=== PATIENT | female | born 1995 | race Caucasian/White ===

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

== ENCOUNTER 2017-07-06 21:11 | Emergency (ER) | payer OTHER | END 2017-07-07 00:10 | disposition left against medical advice (07) | LOC: M ED 21:11 | DX: Z53.29 Procedure and treatment not carried out because of patient's decision for other reasons (principal) ==

== ENCOUNTER 2017-09-27 10:20 | Emergency (ER) | payer OTHER ==
[2017-09-27 11:11] LABS: AMORPHOUS SEDIMENT RFX LARGE (NEGATIVE); KETONE, URINE AUTO RFX NEGATIVE (NEGATIVE); MUCUS, URINE RFX SMALL (NEGATIVE); NITRITE, URINE AUTO RFX NEGATIVE (NEGATIVE); RBC, URINE AUTO RFX 1 /HPF (0-3); SPECIFIC GRAVITY UR AUTO RFX 1.017 (1.002-1.035); SQUAM EPITHELIAL CELL UR AURFX 2 /HPF (0-6); WBC, URINE AUTO RFX 1 /HPF (0-3)
[2017-09-27 11:28] LABS: LEUKOCYTE ESTERASE UR AUTO RFX 1+ (NEGATIVE)
== END 2017-09-27 13:06 | disposition home or self-care (01) ==
LOC: M ED 10:20
DX: O23.591 Infection of other part of genital tract in pregnancy, first trimester (principal); B37.3 Candidiasis of vulva and vagina; O9A.211 Injury, poisoning and certain other consequences of external causes complicating pregnancy, first trimester; T36.95XA Adverse effect of unspecified systemic antibiotic, initial encounter; Z3A.00 Weeks of gestation of pregnancy not specified
CPT/HCPCS: 81001

== ENCOUNTER → 2017-11-07 | Outpatient (CLI) | payer OTHER ==
[2017-11-07 19:40] LABS: BASO % 0.4 % (0.0-1.0); EOS # 0.1 10^3/uL (0.0-0.50); EOS % 1.5 % (0.0-3.0); HEMATOCRIT 36.6 % (36.0-47.0); HEMOGLOBIN 12.9 g/dl (12.0-15.5); IMMATURE GRANULOCYTE % 0.3 % (0-3.0); LYMPH # 1.5 10^3/uL (1.5-6.5); LYMPH % 16.1 % (24.0-44.0); MEAN CORPUSCULAR HEMOGLOBIN 31.4 pg (27.0-33.0); MEAN CORPUSCULAR HGB CONC 35.2 g/dl (32.0-36.5); MEAN CORPUSCULAR VOLUME 89.1 fl (80.0-96.0); MONO # 0.8 10^3/uL (0.0-0.8); MONO % 8.2 % (0.0-5.0); NEUTROPHILS # 6.8 10^3/uL (1.8-7.7); NEUTROPHILS % 73.5 % (36.0-66.0); PLATELET COUNT, AUTOMATED 147 10^3/uL (150-450); RED BLOOD COUNT 4.11 10^6/uL (4.00-5.40); RED CELL DISTRIBUTION WIDTH 12.6 % (11.5-14.5); WHITE BLOOD COUNT 9.2 10^3/uL (4.0-10.0)
[2017-11-07 23:21] LABS: GC DNA AMPLIFICATION NEGATIVE (NEGATIVE)
[2017-11-08 06:25] LABS: CHLAMYDIA DNA AMPLIFICATION NEGATIVE (NEGATIVE)
[2017-11-09 09:27] LABS: RUBELLA IgG QUALITATIVE IMMUNE (IMMUNE)
[2017-11-09 09:43] LABS: HBsAg Prenatal NEGATIVE (NEGATIVE)
[2017-11-09 09:56] LABS: HEPATITIS C VIRUS ABY INDEX 0.1 INDEX (<0.8)
[2017-11-09 09:57] LABS: HIV 1&2 SCREEN CENTAUR NEGATIVE (NEGATIVE)
== END ==
LOC: M WUC 16:09
DX: Z34.81 Encounter for supervision of other normal pregnancy, first trimester (principal); Z3A.09 9 weeks gestation of pregnancy
CPT/HCPCS: 86762

== ENCOUNTER → 2017-12-06 | Outpatient (CLI) | payer OTHER | LOC: M RAD 08:34 | DX: Z34.82 Encounter for supervision of other normal pregnancy, second trimester (principal) | CPT/HCPCS: 76811 ==

== ENCOUNTER 2017-12-09 15:29 | Emergency (ER) | payer OTHER | END 2017-12-09 16:20 | disposition home or self-care (01) | LOC: M ED 15:29 | DX: L50.9 Urticaria, unspecified (principal) | CPT/HCPCS: 99282 ==

== ENCOUNTER 2018-01-01 23:03 | Emergency (ER) | payer OTHER | END 2018-01-02 01:01 | disposition home or self-care (01) | LOC: M ED 23:03 | DX: Z04.1 Encounter for examination and observation following transport accident (principal); Z3A.23 23 weeks gestation of pregnancy | CPT/HCPCS: 76815 ==

== ENCOUNTER → 2018-01-03 | Outpatient (CLI) | payer OTHER | LOC: M RAD 07:54 | DX: Z34.82 Encounter for supervision of other normal pregnancy, second trimester (principal); Z36.89 Encounter for other specified antenatal screening; Z3A.22 22 weeks gestation of pregnancy | CPT/HCPCS: 76816 ==

== ENCOUNTER 2018-01-19 10:33 | Emergency (ER) | payer MEDICAID, OTHER, SELFPAY | END 2018-01-19 11:38 | disposition home or self-care (01) | LOC: M ED 10:33 | DX: O99.612 Diseases of the digestive system complicating pregnancy, second trimester (principal); K21.9 Gastro-esophageal reflux disease without esophagitis; Z3A.25 25 weeks gestation of pregnancy | CPT/HCPCS: 99283 ==

== ENCOUNTER → 2018-01-28 | Outpatient (CLI) | payer MEDICAID ==
[2018-01-28 14:40] LABS: CHLAMYDIA DNA AMPLIFICATION NEGATIVE (NEGATIVE); GC DNA AMPLIFICATION NEGATIVE (NEGATIVE)
[2018-01-28 14:49] LABS: BASO % 0.5 % (0.0-1.0); EOS # 0.1 10^3/uL (0.0-0.50); EOS % 1.5 % (0.0-3.0); HEMOGLOBIN 12.2 g/dl (12.0-15.5); IMMATURE GRANULOCYTE % 0.7 % (0-3.0); LYMPH % 12.5 % (24.0-44.0); MEAN CORPUSCULAR HEMOGLOBIN 32.3 pg (27.0-33.0); MEAN CORPUSCULAR HGB CONC 33.9 g/dl (32.0-36.5); MEAN CORPUSCULAR VOLUME 95.2 fl (80.0-96.0); MONO # 0.6 10^3/uL (0.0-0.8); NEUTROPHILS # 6.2 10^3/uL (1.8-7.7); NEUTROPHILS % 76.8 % (36.0-66.0); PLATELET COUNT, AUTOMATED 126 10^3/uL (150-450); RED BLOOD COUNT 3.78 10^6/uL (4.00-5.40); RED CELL DISTRIBUTION WIDTH 14.2 % (11.5-14.5); WHITE BLOOD COUNT 8.1 10^3/uL (4.0-10.0)
[2018-01-28 15:03] LABS: GLUCOSE CHALLENGE TEST 1 HOUR 137 MG/DL (LESS THAN 140)
[2018-01-29 08:43] LABS: RH ONLY RHOGAM 1 1
== END ==
LOC: M SMT 08:55
DX: Z34.82 Encounter for supervision of other normal pregnancy, second trimester (principal)
CPT/HCPCS: 82950

== ENCOUNTER → 2018-02-05 | Outpatient (CLI) | payer MEDICAID ==
[2018-02-05 09:05] LABS: GLUCOSE, FASTING 88 MG/DL (LESS THAN 95)
[2018-02-05 09:53] LABS: 1 HR GLUCOSE 170 MG/DL (LESS THAN 180)
[2018-02-05 11:19] LABS: 2 HR GLUCOSE 110 MG/DL (LESS THAN 155)
[2018-02-05 12:49] LABS: 3 HR GLUCOSE 76 MG/DL (LESS THAN 140)
== END ==
LOC: M LAB 08:08
DX: Z34.82 Encounter for supervision of other normal pregnancy, second trimester (principal); Z36.89 Encounter for other specified antenatal screening
CPT/HCPCS: 82951

== ENCOUNTER → 2018-04-03 | Outpatient (REF) | payer OTHER | LOC: M LAB REF 16:46 | DX: Z36.89 Encounter for other specified antenatal screening (principal) | CPT/HCPCS: 87081 ==

== ENCOUNTER 2018-04-17 21:34 | Inpatient (IN) | payer OTHER ==
[2018-04-17] MEDS: LACTATED RINGER'S 1000 ML IV (22:44)
[2018-04-17 23:06] LABS: HEMATOCRIT 37.3 % (36.0-47.0); HEMOGLOBIN 13.2 g/dl (12.0-15.5); MEAN CORPUSCULAR HEMOGLOBIN 32.8 pg (27.0-33.0); MEAN CORPUSCULAR HGB CONC 35.4 g/dl (32.0-36.5); MEAN CORPUSCULAR VOLUME 92.8 fl (80.0-96.0); PLATELET COUNT, AUTOMATED 142 10^3/uL (150-450); RED BLOOD COUNT 4.02 10^6/uL (4.00-5.40); RED CELL DISTRIBUTION WIDTH 13.6 % (11.5-14.5)
[2018-04-17] MEDS: OXYTOCIN DRIP 30 UNITS in APPROPRIATE DILUENT 1 EA IV (23:45)
[2018-04-18] MEDS ORDERED: FENTANYL 2MCG/ML ROPIVACAINE 0.2% IN 0.9% NACL 100ML IVBAG As Ordered (01:34)
[2018-04-18] MEDS ORDERED: EPIDURAL COMMENT XX (03:30)
[2018-04-18] MEDS ORDERED: REFRIGERATOR IV KEYS XX (03:30)
[2018-04-18] MEDS ORDERED: NALOXONE INJ 0.4 MG/1 ML VIAL (J2310) IV (03:30)
[2018-04-18] MEDS ORDERED: EPIDURAL/PCA KEYS XX (03:30)
[2018-04-18] MEDS ORDERED: ONDANSETRON 4MG/2ML VIAL (J2405) IV (03:30)
[2018-04-18] MEDS ORDERED: diphenhydrAMINE INJ 50MG/ML VIAL (J1200) IV (03:30)
[2018-04-18] MEDS: ePHEDrine SULFATE 25 MG/5 ML(5MG/ML) SYRINGE IV (08:25)
[2018-04-18] MEDS: LR 1,000 ML IV (08:47)
[2018-04-18] MEDS: FENTANYL/ROPIVACAINE/NACL BAG 100 ML EPIDURAL (11:08)
[2018-04-18] MEDS: OXYTOCIN DRIP 30 UNITS in APPROPRIATE DILUENT 1 EA IV (11:54)
[2018-04-18] MEDS ORDERED: MEASLES,MUMPS,RUBELLA VACCINE INJ (MMR-II) (90707) SC (12:30)
[2018-04-18] MEDS ORDERED: METHYLERGONOVINE MALEATE 0.2 MG TAB PO (12:30)
[2018-04-18] MEDS ORDERED: ANUSOL HC CREAM 30GM TOP (12:30)
[2018-04-18] MEDS ORDERED: MOM 30ML SUSPENSION UDC PO (12:30)
[2018-04-18] MEDS: IBUPROFEN 800 MG TAB PO (15:12)
[2018-04-18] MEDS: DIBUCAINE 1% OINTMENT 30GM TOP (15:12)
[2018-04-18] MEDS: DOCUSATE SODIUM 100 MG CAP PO (22:13)
[2018-04-18] MEDS: ACETAMINOPHEN 500 MG TAB PO (22:14)
[2018-04-19] MEDS: PRENATAL VITAMINS CHEWABLE TABLET PO (07:56)
[2018-04-19] MEDS: IBUPROFEN 800 MG TAB PO ×2 (07:57→16:49)
[2018-04-19 14:33] LABS: FETAL SCREEN PROF. 1 1
[2018-04-19] MEDS: RHOGAM 300 MCG (1500 IU) INJ (J2790) IM (16:49)
[2018-04-19] MEDS: ACETAMINOPHEN 500 MG TAB PO (21:59)
[2018-04-20] MEDS: IBUPROFEN 800 MG TAB PO (03:25)
[2018-04-20] MEDS: PRENATAL VITAMINS CHEWABLE TABLET PO (09:29)
== END 2018-04-20 12:15 | disposition home or self-care (01) | DRG 560 ==
LOC: M LDO 21:34 → M OBS 04-18 14:55 → M LDI 22:22
PROVIDERS: Advanced Practice Midwife
PROC: 10E0XZZ Delivery of Products of Conception, External Approach (ICD-10-PCS; principal; 2018-04-18)
PROC: 0HQ9XZZ Repair Perineum Skin, External Approach (ICD-10-PCS; 2018-04-18)
DX: O69.82X0 Labor and delivery complicated by other cord entanglement, without compression, not applicable or unspecified (principal); O70.0 First degree perineal laceration during delivery; Z37.0 Single live birth; Z3A.38 38 weeks gestation of pregnancy

== ENCOUNTER → 2019-05-21 | Outpatient (CLI) | payer OTHER ==
[~2019-05-21] MED LIST: ALL10TAB29 PO; CEPH500T PO; CLOT1CRE27 TOP; IBUP-1114 PO; MACR100C43 PO; MAPA500T2 PO; PREN1CHW6 PO; PRENTAB9 PO; ZANT150T40 PO
[2019-05-23 18:26] LABS: HEPATITIS B SURFACE ANTIGEN NEGATIVE (NEGATIVE); HEPATITIS C VIRUS ABY INDEX < 0.0 INDEX (<0.8); HIV 1&2 SCREEN CENTAUR NEGATIVE (NEGATIVE)
== END ==
LOC: M WUC 13:31
PROVIDERS: ATTEND Nurse Practitioner Women's Health
DX: Z11.3 Encounter for screening for infections with a predominantly sexual mode of transmission (principal)

== ENCOUNTER 2019-06-15 11:10 | Emergency (ER) | payer OTHER ==
[2019-06-15] MEDS ORDERED: IBUPROFEN 800 MG TAB PO ONE (11:30)
[2019-06-15] MEDS ORDERED: ACETAMINOPHEN 325 MG TAB PO ONE (11:30)
--- NOTE | 2019-06-15 11:48 | REP ---
Left ankle four views : There is no fracture or dislocation. Mineralization and joint spaces are normal. There are no calcifications or foreign bodies. Impression: Negative left ankle . Electronically Signed by Benoit Huber MD 06/15/2019 11:40 A
--- NOTE | 2019-06-15 11:48 | REP ---
Left foot four views : There is no fracture or dislocation. Mineralization and joint spaces are normal. There are no calcifications or foreign bodies. Impression: Negative left foot . Electronically Signed by Benoit Huber MD 06/15/2019 11:40 A
[2019-06-15] MEDS ORDERED: NORC1TAB7 PO (12:10)
[2019-06-15] MEDS ORDERED: KETO10TAB PO (12:10)
== END 2019-06-15 12:20 | disposition home or self-care (01) ==
LOC: M ED 11:10
DX: S93.402A Sprain of unspecified ligament of left ankle, initial encounter (principal); S90.32XA Contusion of left foot, initial encounter; W10.9XXA Fall (on) (from) unspecified stairs and steps, initial encounter; Y92.9 Unspecified place or not applicable; Y93.89 Activity, other specified; Y99.9 Unspecified external cause status; Z79.899 Other long term (current) drug therapy

== ENCOUNTER → 2019-06-26 | Outpatient (REF) | payer OTHER ==
[~2019-06-26] MED LIST changes: +KETO10TAB PO; +NORC1TAB7 PO
[2019-06-26 21:36] LABS: CHLAMYDIA DNA AMPLIFICATION NEGATIVE (NEGATIVE); GC DNA AMPLIFICATION NEGATIVE (NEGATIVE)
== END ==
LOC: M SFHCWAGY 16:59
PROVIDERS: ATTEND Advanced Practice Midwife
DX: Z11.3 Encounter for screening for infections with a predominantly sexual mode of transmission (principal)

== ENCOUNTER 2020-12-11 22:21 | Emergency (ER) | payer OTHER ==
[~2020-12-11] VITALS: Ht 162.6 cm; Wt 70.5 kg
[~2020-12-11 22:21] MED LIST changes: -ALL10TAB29 PO; +CETI-24 PO
[2020-12-11 22:23] VITALS: BP 135/77
== END 2020-12-12 01:42 | disposition left against medical advice (07) ==
LOC: M ED 22:21
DX: Z53.21 Procedure and treatment not carried out due to patient leaving prior to being seen by health care provider (principal)

== ENCOUNTER → 2021-09-09 | Outpatient (REF) | payer OTHER | LOC: M LAB REF 11:53 | PROVIDERS: ATTEND Physician Assistant | DX: R50.9 Fever, unspecified (principal); R05.9 Cough, unspecified ==

== ENCOUNTER → 2023-08-22 | Outpatient (CLI) | payer OTHER ==
[2023-08-22 16:33] LABS: HEMATOCRIT 39.1 % (36.0-47.0); HEMOGLOBIN 13.5 g/dl (12.0-15.5); MEAN CORPUSCULAR HEMOGLOBIN 30.8 pg (27.0-33.0); MEAN CORPUSCULAR HGB CONC 34.5 g/dl (32.0-36.5); MEAN CORPUSCULAR VOLUME 89.3 fl (80.0-96.0); PLATELET COUNT, AUTOMATED 176 10^3/uL (150-450); RED BLOOD COUNT 4.38 10^6/uL (4.00-5.40); WHITE BLOOD COUNT 6.6 10^3/uL (4.0-10.0)
[2023-08-22 17:05] LABS: LIPASE 34 U/L (12-53)
[2023-08-22 17:06] LABS: AMYLASE 71 U/L (30-118)
[2023-08-22 17:07] LABS: ALBUMIN 3.7 G/DL (3.2-5.2); ALKALINE PHOSPHATASE 72 U/L (46-116); ALT/SGPT 31 U/L (7.0-40); AST/SGOT 19 U/L (<34); BILIRUBIN,TOTAL 0.4 MG/DL (0.3-1.2); BLOOD UREA NITROGEN 13 MG/DL (9-23); CALCIUM LEVEL 8.5 MG/DL (8.5-10.1); CARBON DIOXIDE LEVEL 28 MMOL/L (20-31); CHLORIDE LEVEL 105 MMOL/L (98-107); CREATININE FOR GFR 0.94 MG/DL (0.55-1.30); GLOMERULAR FILTRATION RATE > 60.0 (>60); GLUCOSE, FASTING 98 MG/DL (60-100); POTASSIUM SERUM 4.1 MMOL/L (3.5-5.1); SODIUM LEVEL 139 MMOL/L (136-145); TOTAL PROTEIN 6.7 G/DL (5.7-8.2)
== END ==
LOC: M LAB 16:13
PROVIDERS: ATTEND Physician Assistant
DX: R10.13 Epigastric pain (principal)

== ENCOUNTER → 2024-01-04 | Outpatient (CLI) | payer OTHER | LOC: M RAD 07:36 | PROVIDERS: ATTEND Physician Assistant | DX: R10.13 Epigastric pain (principal) ==

== ENCOUNTER → 2024-03-18 | Outpatient (CLI) | payer OTHER | LOC: M RAD 11:24 | PROVIDERS: ATTEND Surgery | DX: R10.13 Epigastric pain (principal); R93.3 Abnormal findings on diagnostic imaging of other parts of digestive tract | CPT/HCPCS: 78227; A9537 ==

== ENCOUNTER → 2025-04-21 | Outpatient (CLI) | payer OTHER | LOC: M WHC 11:30 | PROVIDERS: ATTEND Obstetrics & Gynecology Obstetrics | DX: R10.21 Pelvic and perineal pain right side (principal); Z97.5 Presence of (intrauterine) contraceptive device ==